=== PATIENT | female | born 1945 | race Caucasian/White ===

== ENCOUNTER 2017-04-17 14:45 | Emergency (ER) | payer MEDICARE ==
[2017-04-17 15:14] VITALS: BP 115/57; PULSE 60; RESP 18; TEMP 97.5; O2SAT 96
[2017-04-17] MEDS ORDERED: ASPI-516 CHEW (15:23)
[2017-04-17] MEDS ORDERED: CELE200C PO (15:23)
--- NOTE | 2017-04-17 15:40 | PD ---
HPI Chief Complaint: Laceration/Skin Injury Time Seen by Provider: 15:32 Travel History International Travel<30 days: No Contact w/Intl Traveler<30days: No Traveled to known affect area: No History of Present Illness HPI Patient comes to the emergency Department complaining of laceration to left forehead near the hairline after a mechanical fall while in the shower. Patient denies any loss of consciousness. Denies any numbness or tingling anywhere, denies any loss of bowel or bladder. Reports she takes baby aspirin daily denies any other blood thinners. Patient describes pain as it just hurts without radiation around site of the laceration. Patient denies doing anything for this prior coming to the emergency department. Patient also complaining of her tenderness over left elbow where she noticed a bruise after the fall. Denies any radiation of the pain. Denies anything making the pain better. Pain is worse palpation. Denies any chest pain, shortness of breath, new neck pain, back pain, or change in her chronic pain. PFSH Past Medical History Arthritis: Yes Diminished Hearing: No Tetanus Vaccination: < 5 Years Influenza Vaccination: Yes ?: Not Social History Alcohol Use: No Tobacco Use: No Allergies-Medications (Allergen,Severity, Reaction): Coded Allergies: Penicillins (Verified Allergy, Unknown, 04/17/17) cephalexin (Verified Allergy, Unknown, 04/17/17) meperidine (Verified Allergy, Unknown, 04/17/17) metoclopramide (Verified Allergy, Unknown, 04/17/17) Reported Meds & Prescriptions Reported Meds & Active Scripts Active Reported Hemangeol (Propranolol HCl) 4.28 Mg/Ml Solution Polyethylene Glycol 3350 17 Gram/Dose Pow [Oxybutynin Chloride] 5 Mg PO DAILY Omeprazole 20 Mg Tab 20 Mg PO DAILY [id number] Ethyl Esters 1 Gm Cap 4 Gm PO DAILY Nasonex Nasal [place] (Mometasone Furoate) 50 Mcg/Act Naspr 2 [place] EACH NARE DAILY Metformin (Metformin HCl) 500 Mg Tab 500 Mg PO BIDPC Glimepiride 2 Mg Tab 2 Mg PO HS Take with breakfast or first main meal Glimepiride 4 Mg Tab 4 Mg PO DAILY Take with breakfast or first main meal Gabapentin 600 Mg Tab 600 Mg PO TID Gabapentin 300 Mg Cap 900 Mg PO HS Dulera 120 Act Inh (Mometasone-Formoterol 120 Act Inh) 100-5 Mcg/Act Inh 2 Puff INH BID Escitalopram (Escitalopram Oxalate) 20 Mg Tab 20 Mg PO DAILY Diazepam 5 Mg Tab 5 Mg PO BID Desloratadine 5 Mg Tab 5 Mg PO DAILY Chlorthalidone 25 Mg Tab 25 Mg PO DAILY Atorvastatin (Atorvastatin Calcium) 80 Mg Tab 80 Mg PO HS Percocet (Oxycodone-Acetaminophen) 10-325 mg Tab 1 Tab PO TID PRN Celebrex (Celecoxib) 200 Mg Cap 200 Mg PO BID PRN Aspirin 81 Mg Chew 81 Mg CHEW DAILY Review of Systems Except as stated in HPI: all other systems reviewed are Neg Physical Exam Narrative GENERAL: Well-developed, overly nourished, in no acute distress, and non-ill appearing. SKIN: Small laceration noted to left forehead near the hairline. It is deep to the periosteum and mildly gaping. No foreign body noted. No crepitus. No skull depression. HEAD: Atraumatic. Normocephalic. EYES: Pupils equal and round. EOMI. No scleral icterus. No injection or drainage. ENT: No nasal bleeding or discharge. Mucous membranes pink and moist. NECK: Trachea midline. No crepitus cervical spine. Patient reports pain to palpation states is chronic and does not believe it is different from her normal neck pain. Supple. No nuclear rigidity. CARDIOVASCULAR: Radial pulses 2+, intact, and equal bilaterally. Capillary refill less than 2 seconds. RESPIRATORY: No accessory muscle use. No respiratory distress. MUSCULOSKELETAL: No obvious deformities. No clubbing. No cyanosis. No edema. Full range of motion. Shoulder:FROM equal BL with passive flexion, extension, Abduction, Adduction, internal/external rotation, and pronation/supination. Sensation equal BL deltoid muscles. Pulses equal BL distal to injury. Capillary refill less than 2 seconds distal to injury and equal BL. FROM distal to injury and equal BL. Strength distal to injury equal BL. NV intact distal to injury equal BL. Flexion and extension of thumb equal BL. Equal strength and movement with abduction/adductions of BL fingers. [employer] strength equal BL. Elbow : FROM and strength equal BL with passive flexion, extension, and pronation/supination. No laxity noted with varus and valgus maneuvers. Pulses equal BL distal to injury. Capillary refill less than 2 seconds distal to injury and equal BL. FROM distal to injury and equal BL. Strength distal to injury equal BL. NV intact distal to injury and equal BL. Flexion and extension of thumb equal BL. Equal strength and movement with abduction/ adductions of BL fingers. [employer] strength equal BL. Patient reports tenderness to palpation posterior left elbow. There is no crepitus. There is ecchymosis noted. NEUROLOGICAL: Awake and alert. No obvious cranial nerve deficits. Motor grossly within normal limits. Normal speech. PSYCHIATRIC: Appropriate mood and affect; insight and judgment normal. Data Data Last Documented VS Vital Signs Date Time Temp Pulse Resp B/P (MAP) Pulse Ox O2 Delivery O2 Flow Rate FiO2 04/17/17 15:14 97.5 60 18 115/57 (76) 96 Orders Orders Apply Cervical Collar (04/17/17 15:36) Ct Brain W/O Iv Contrast(Rout) (04/17/17 ) Ct Cerv Spine W/O Contrast (04/17/17 ) Lidocai-Epi 1%-1:100,000 Inj (Xylocaine- (04/17/17 15:45) Elbow, Complete (4 Vws) (04/17/17 ) Lidocai-Epi 0.5%-1:200,000 Inj (Xylocain (04/17/17 15:45) Ed Discharge Order (04/17/17 17:21) [facility] Medical Decision Making Medical Screen Exam Complete: Yes Emergency Medical Condition: Yes Differential Diagnosis Fracture, strain, contusion, closed head injury, intracranial hemorrhage, laceration, abrasion Narrative Course Patient presents with closed head injury. There was no evidence of cranial or intracranial injury noted on CT of the head and no evidence of fracture or injury to cervical spine on C-spine CT. The patient has been behaving normally and no notable altered mental status. Beckley score of 15. The neurologic exam is normal. The patient is awake and aware and motor sensory exams are normal. There is no clinical evidence to support intracranial injury or bleed. The patient appears to have suffered a contusion of the elbow. There is no clinical evidence to suspect bony injury by exam. Radiographic examination revealed no fracture seen at this time. The patient has full range of motion on active and passive motions. There is no significant edema. There is no proximal or distal joint effusion. The distal extremity appears neurovascularly intact, without evidence of neurovascular injury nor compartment syndrome. Tendon exam also was intact. The patient was discharged on pain medication instructions and given warnings for vascular compromise. The patient is to follow up with their regular physician or Orthopedics. The patient agrees with plan. The patient suffered laceration to the face. The laceration appeared clean and approximated well. There was no evidence to suggest foreign bodies. Visual and tactile exams were unremarkable. There was no evidence of neurovascular injury as well. The patient was irrigated with copious sterile normal saline and primary repair was performed. Please see procedure note. The patient was given signs and symptom warnings for infection, such as increasing pain, redness, swelling, associated heat, pus or fever. The patient was warned of possible unseen foreign body and instructed to return immediately if signs or symptoms develop. The patient was given instructions for timely follow up. The patient agreed with plan of care. Patient in no obvious distress upon re-evaluation. All pertinent Radiology result(s) discussed with patient/family. Any questions/concerns in reference to patient diagnosis/condition discussed and clarified prior to patient's discharge. Reinforced sheer importance of close follow up with patient's primary physician or primary care clinic. Instructed patient to return to ED immediately, if symptoms return/worsen. Patient showed understanding of above instructions. Further instructions and recommendations were detailed in discharge paperwork. Patient left without difficulty out of ED at discharge. Procedures Procedure Narrative LACERATION REPAIR LOCATION: Left forehead LENGTH: Approximately 2.5 cm total length NUMBER OF STITCHES/GAIL: 6 buried in 5 to close REPAIR: Verbal consent was obtained. The area of the laceration was cleaned and prepped. The laceration was infiltrated with 0.5% lidocaine with epi. The wound was copiously irrigated and explored without evidence of foreign body, bony involvement, ligament injury, tendon injury, or neurovascular injury. The wound was closed using 4-0 Vicryl and 5-0 Vicryl by medical student Justin under my supervision. This was a 3 layer layer repair including the periosteum, subcutaneous, and closure. A sterile dressing was applied by nurse. The patient was advised to keep the affected area as clean and dry as possible using soap and water. There were no complications. Patient tolerated the procedure well. Diagnosis Primary Impression: Head injury Qualified Codes: S09.90XA - Unspecified injury of head, initial encounter Additional Impressions: Elbow contusion Qualified Codes: S50.02XA - Contusion of left elbow, initial encounter Facial laceration Qualified Codes: S01.81XA - Laceration without foreign body of other part of head, initial encounter Fall Qualified Codes: W19.XXXA - Unspecified fall, initial encounter Referrals: Romeo Marks MD [facility] Patient Instructions: Care For Your Absorbable Stitches (ED), Contusion in Adults (ED), Facial Laceration (ED), Fall Prevention (ED), General Instructions , Head Injury (ED) Additional Instructions: Follow-up with your primary care physician and/or orthopedics this week for reevaluation. Keep wound dry and clean as possible using soap and water. Use Neosporin to promote healing. Do not soak or submerge wound. Apply sunscreen for the next year once healed to decrease scarring. Follow-up with plastic surgeon the future for scar revision if desired. Apply ice affected area 20 minutes per hour for pain. Return to the emergency department if symptoms get worse. Disposition: 01 DISCHARGE HOME Condition: Stable Reji Gates Apr 17, 2017 15:40
[2017-04-17] MEDS ORDERED: LIDOCAINE 1%/EPINEPHrine 1:100,000 SOLN 20 ML VIAL INFIL ONE (15:45)
[2017-04-17] MEDS ORDERED: LIDOCAINE 0.5%/EPINEPHrine 1:200,000 SOLN 50 ML VIAL INFIL ONE (15:45)
--- NOTE | 2017-04-17 16:22 | RADRPT ---
EXAM DATE/TIME: 04/17/2017 15:56 [facility] COMPARISON: No previous studies available for comparison. INDICATIONS : Fell in shower. Left frontal laceration. RADIATION DOSE: 57.35 CTDIvol (mGy) MEDICAL HISTORY : None SURGICAL HISTORY : None. ENCOUNTER: Initial ACUITY: 1 day PAIN SCALE: 8/10 LOCATION: Left frontal TECHNIQUE: Multiple contiguous axial images were obtained of the head. Using automated exposure control and adj ustment of the mA and/or kV according to patient size, radiation dose was kept as low as reasonably a chievable to obtain optimal diagnostic quality images. DICOM format image data is available electro nically for review and comparison. FINDINGS: CEREBRUM: The ventricles are normal for age. No evidence of midline shift, mass lesion, hemorrhage or acute in farction. No extra-axial fluid collections are seen. POSTERIOR FOSSA: The cerebellum and brainstem are intact. The 4th ventricle is midline. The cerebellopontine angle i s unremarkable. EXTRACRANIAL: The visualized portion of the orbits is intact. There is mild soft tissue swelling over the left fron tom bone. SKULL: The calvaria is intact. No evidence of skull fracture. CONCLUSION: Negative noncontrast head CT Florin Pop MD on April 17, 2017 at 16:13 Board Certified Radiologist. This report was verified electronically.
--- NOTE | 2017-04-17 16:26 | RADRPT ---
EXAM DATE/TIME: 04/17/2017 15:56 [facility] COMPARISON: No previous studies available for comparison. INDICATIONS : Fell in shower. Left frontal laceration. RADIATION DOSE: 26.54 CTDIvol (mGy) MEDICAL HISTORY : None SURGICAL HISTORY : None. ENCOUNTER: Initial ACUITY: 1 day PAIN SCALE: 8/10 LOCATION: neck TECHNIQUE: Volumetric scanning of the cervical spine was performed. Multiplanar reconstructions in the sagittal, coronal and oblique axial planes were performed. Using automated exposure control and adjustment o f the mA and/or kV according to patient size, radiation dose was kept as low as reasonably achievable to obtain optimal diagnostic quality images. DICOM format image data is available electronically f or review and comparison. FINDINGS: Cervical spine alignment is satisfactory. There is no evidence of cervical spine fracture. There are degenerative changes present throughout with disc space narrowing most significantly at C4-5, C5-6 an d C6-7. Moderate dorsal endplate osteophytic spurring is present C5-6 and C6-7. There is no evidence of spinal hematoma. CONCLUSION: Prominent degenerative changes in the lower cervical spine. No evidence of acute injury. Shawn Lobato MD on April 17, 2017 at 16:21 Board Certified Radiologist. This report was verified electronically.
[2017-04-17] MEDS ORDERED: ESCI20TA PO (16:30)
[2017-04-17] MEDS ORDERED: OXYBPOW10 PO (16:30)
[2017-04-17] MEDS ORDERED: GLIM4TAB PO (16:30)
[2017-04-17] MEDS ORDERED: GLIM2TAB PO (16:30)
[2017-04-17] MEDS ORDERED: DIAZ5TAB PO (16:30)
[2017-04-17] MEDS ORDERED: DULE100A INH (16:30)
[2017-04-17] MEDS ORDERED: GABA300C5 PO (16:30)
[2017-04-17] MEDS ORDERED: CHLO25TA2 PO (16:30)
[2017-04-17] MEDS ORDERED: GABA600T PO (16:30)
[2017-04-17] MEDS ORDERED: MOME17I EACH NARE (16:30)
[2017-04-17] MEDS ORDERED: OMEP20TA93 PO (16:30)
[2017-04-17] MEDS ORDERED: DESL5TAB4 PO (16:30)
[2017-04-17] MEDS ORDERED: ATOR80TA45 PO (16:30)
[2017-04-17] MEDS ORDERED: METF500T PO (16:30)
[2017-04-17] MEDS ORDERED: PERC10TA27 PO (16:30)
[2017-04-17] MEDS ORDERED: [UNRECOGNIZED DRUG - CODE] (16:30)
[2017-04-17] MEDS ORDERED: POLY3350 (16:30)
[2017-04-17] MEDS ORDERED: OMEG1CAP28 PO (16:30)
--- NOTE | 2017-04-17 16:57 | RADRPT ---
EXAM DATE/TIME: 04/17/2017 16:22 [facility] COMPARISON: No previous studies available for comparison. INDICATIONS : Left elbow pain after falling in the shower today. MEDICAL HISTORY : None. SURGICAL HISTORY : None. ENCOUNTER: Initial ACUITY: 1 day PAIN SCORE: 4/10 LOCATION: Left posterior elbow. FINDINGS: Multiple view examination of the left elbow demonstrates no soft tissue swelling, joint effusion, or fracture. The osseous structures are in normal alignment. Bony mineralization is normal. CONCLUSION: 1. No acute fracture or dislocation. Jim Duran MD on April 17, 2017 at 16:53 Board Certified Radiologist. This report was verified electronically.
== END 2017-04-17 17:28 | disposition home or self-care (01) ==
LOC: PHEFT 14:45
DX: S09.90XA Unspecified injury of head, initial encounter (principal); S50.02XA Contusion of left elbow, initial encounter; S01.81XA Laceration without foreign body of other part of head, initial encounter; M19.90 Unspecified osteoarthritis, unspecified site; W18.2XXA Fall in (into) shower or empty bathtub, initial encounter; Y92.002 Bathroom of unspecified non-institutional (private) residence as the place of occurrence of the external cause
CPT/HCPCS: 12051; 70450; 72125; 73080